=== PATIENT | male | born 2000 | race Caucasian/White ===

== ENCOUNTER 2019-09-25 05:37 | Outpatient (CLI) | payer BC ==
[2019-09-25 10:13] LABS: #Eosinphils 0.1 thou/uL (0.0-0.7); #Monocytes 0.5 thou/uL (0.11-0.59); #Neutrophils 2.6 thou/uL (1.40-6.50); %Basophils 0.4 % (0.0-1.0); %Lymphocytes 47.6 % (28.0-48.0); %Monocytes 8.7 % (0.0-4.0); %Neutrophils 41.2 % (31.0-61.0); Hemoglobin 15.4 g/dL (14.0-18.0); Mean Corpuscular HGB CONC 32.9 g/dL (32.0-36.0); Mean Corpuscular Hemoglobin 29.5 pg (25.0-35.0); Mean Corpuscular Volume 89.6 fL (78.0-98.0); Mean Platelet Volume 7.4 fL (7.4-10.4); Platelet Count 197 thou/uL (130-400); RBC Distribution Width 11.3 % (11.5-14.5); Red Blood Cell (RBC) Count 5.22 mill/uL (4.00-5.20); White Blood Cell (WBC) Count 6.3 thou/uL (4.8-10.8)
[2019-09-25 10:32] LABS: Anion Gap 11 mmol/L (10-20); BUN (Urea Nitrogen) 16 mg/dL (8.4-21.0); Calc. Creatinine Clearance 0 mL/min (70-130); Carbon Dioxide 30 mmol/L (22-29); Chloride 104 mmol/L (98-107); Estimated GFR-MDRD Greater than 90; Glucose 78 mg/dL (70-105); Potassium 4.2 mmol/L (3.5-5.1); Sodium 141 mmol/L (136-145)
== END 2019-09-25 05:38 | disposition home or self-care (01) ==
LOC: LABBT 05:37
PROVIDERS: ATTEND Surgery
DX: Z01.812 Encounter for preprocedural laboratory examination (principal); L05.01 Pilonidal cyst with abscess
CPT/HCPCS: 80048; 85025

== ENCOUNTER 2019-09-26 07:30 | Day surgery (SDC) | payer BC ==
[2019-09-25 08:48] VITALS: BMI 20.3
[2019-09-26] MEDS ORDERED: ceFOXitin 2 GM/50 ML Duplex BAG ONE (08:19)
[2019-09-26] MEDS ORDERED: Fentanyl 100 MCG/2 ML VIAL ONE (09:12)
[2019-09-26] MEDS ORDERED: Lidocaine 1% w/Epinephrine 1:100K 20 ML VIAL ONE (09:15)
[2019-09-26] MEDS ORDERED: Bupivacaine PF 0.5% 30 ML VIAL ONE (09:15)
[2019-09-26] MEDS ORDERED: Meperidine HCl/PF 25 MG/ML VIAL ONE (10:22)
[2019-09-26] MEDS ORDERED: PROPOFOL 200 MG/20 ML VIAL ONE (10:25)
[2019-09-26] MEDS ORDERED: Ondansetron PF 4 MG/2 ML Vial ONE (10:25)
[2019-09-26] MEDS ORDERED: Rocuronium Bromide 10 MG/ML (10ML VIAL) ONE (10:25)
[2019-09-26] MEDS ORDERED: Glycopyrrolate 0.2 MG/ML 5 ML SYRINGE ONE (10:25)
[2019-09-26] MEDS ORDERED: Dexamethasone 20 MG/5 ML VIAL ONE (10:25)
[2019-09-26] MEDS ORDERED: Lidocaine 1% PF 5 ML VIAL ONE (10:25)
--- NOTE | 2019-09-26 13:47 | OP ---
DATE OF PROCEDURE: 09/26/2019 PREOPERATIVE DIAGNOSIS: Pilonidal cyst with abscess. PROCEDURE PERFORMED: Pilonidal cystectomy. INDICATIONS: This is a 18-year-old male, who developed a very painful swollen mass in his gluteal cleft, was diagnosed with a pilonidal cyst. FINDINGS: It had recently ruptured, there was a cyst cavity. The actual cyst cavity was about 3 cm. DESCRIPTION OF PROCEDURE: After informed consent was obtained, the patient was taken to the operating room, given general endotracheal anesthesia. He was placed in the prone position. Buttock cheeks were spread apart with tape. His gluteal area was prepped and draped in usual fashion. Local anesthesia was infiltrated subcutaneously and deep with 0.5% Marcaine. An asymmetric elliptical incision was performed with extra tissue taken from the left side. The subcu divided sharply. The cyst excised. Hemostasis was achieved with electrocautery. The skin was sutured to the base of the cyst with interrupted 3-0 chromic sutures circumferentially. Hemostasis was assured. The wound was irrigated. Sterile bandage applied. The patient tolerated the procedure well, transferred to Recovery in good condition. Sponge and needle count verified correct x2. Job ID: [id number]
== END 2019-09-26 12:40 | disposition home or self-care (01) ==
LOC: SDC 07:30
PROVIDERS: ATTEND Surgery
PROC: 0JB90ZZ Excision of Buttock Subcutaneous Tissue and Fascia, Open Approach (ICD-10-PCS; principal; 2019-09-26)
DX: L05.01 Pilonidal cyst with abscess (principal); F41.9 Anxiety disorder, unspecified; Z79.899 Other long term (current) drug therapy
CPT/HCPCS: 88304; J0694; J1100; J2001; J2175; J2405; J2704; J3010; S0020